=== PATIENT | female | born 1965 | race Caucasian/White ===

== ENCOUNTER 2021-06-09 22:21 | Emergency (ER) | payer SELFPAY ==
[~2021-06-09] VITALS: Ht 160 cm; Wt 77.0 kg
[2021-06-09] MEDS ORDERED: HYDROCODONE/ACETAMINOPHEN 5/325MG TABLET PO ONE (23:15)
[2021-06-10] MEDS ORDERED: IBUP-2029 PO (01:14)
[2021-06-10 01:30] VITALS: BP 118/61
== END 2021-06-10 01:30 | disposition home or self-care (01) ==
LOC: ER 22:21
DX: M25.512 Pain in left shoulder (principal); I10 Essential (primary) hypertension; E78.00 Pure hypercholesterolemia, unspecified; W18.30XA Fall on same level, unspecified, initial encounter; Y93.89 Activity, other specified; Y92.89 Other specified places as the place of occurrence of the external cause; Y99.8 Other external cause status
CPT/HCPCS: 73030; 73060; 99284; A4565